=== PATIENT | female | born 1975 | race Native Hawaiian/Other Pacific Islander ===

== ENCOUNTER 2019-12-29 05:05 | Emergency (ER) | payer BC, SELFPAY ==
[2019-12-29 05:12] VITALS: BP 103/74; PULSE 111; RESP 20; TEMP 36.2; O2SAT 100
--- NOTE | 2019-12-29 05:58 | ED.ALLEREA ---
HPI - Allergic Reaction General Chief complaint: Allergic Reaction <Celeste Triplett MD - Last Filed: 12/29/19 06:49> Stated complaint: facial swelling <Celeste Triplett MD - Last Filed: 12/29/19 06:49> Time Seen by Provider: 12/29/19 05:54 <Celeste Triplett MD - Last Filed: 12/29/19 06:49> Source: patient <Celeste Triplett MD - Last Filed: 12/29/19 06:49> Mode of arrival: ambulatory <Celeste Triplett MD - Last Filed: 12/29/19 06:49> Limitations: no limitations <Celeste Triplett MD - Last Filed: 12/29/19 06:49> History of Present Illness HPI narrative: 44 yo female who presents for evaluation of lip swelling since yesterday. Patient states when she returned inside from raking leaves she noticed weird feeling to upper lip. She states she took benadryl last night, but she she woke up this morning with swelling to entire upper lip and face. She notes swelling then gradually moved to left lower lip. She denies pain with swallowing, sob and rash or itching. She denies previous history of similar occurrence. She denies family history of angioedema. She does take lisinopril 10 mg daily. <Celeste Triplett MD - Last Filed: 12/29/19 06:49> MD complaint: facial swelling <Celeste Triplett MD - Last Filed: 12/29/19 06:49> Related Data Home medications: Home Medications Medication Instructions Recorded Confirmed lisinopril 12/29/19 <Celeste Triplett MD - Last Filed: 12/29/19 06:49> Allergies/adverse reactions: Allergies Allergy/AdvReac Type Severity Reaction Status Date / Time No Known Allergies Allergy Verified 12/29/19 05:18 <Celeste Triplett MD - Last Filed: 12/29/19 06:49> Review of Systems Review of Systems: All systems reviewed & are unremarkable except as noted in HPI and below <Celeste Triplett MD - Last Filed: 12/29/19 06:49> Constitutional: Constitutional: Denies chills, Denies fever(s) and Denies weakness <Celeste Triplett MD - Last Filed: 12/29/19 06:49> ENT: Denies epistaxis, Denies nasal congestion and Denies sore throat <Celeste Triplett MD - Last Filed: 12/29/19 06:49> Cardiovascular: Cardiovascular: Denies chest pain <Celeste Triplett MD - Last Filed: 12/29/19 06:49> Respiratory: Respiratory: Denies cough and Denies dyspnea <Celeste Triplett MD - Last Filed: 12/29/19 06:49> Gastrointestinal: Gastrointestinal: Reports abdominal pain and Denies nausea <Celeste Triplett MD - Last Filed: 12/29/19 06:49> PMFSH Past Medical History Medical History: Medical History (Updated 12/29/19 @ 06:30 by Celeste Triplett MD) Hypertension Right ovarian cyst <Celeste Triplett MD - Last Filed: 12/29/19 06:49> Surgical History Surgical History: Surgical History (Updated 12/29/19 @ 06:27 by Celeste Triplett MD) H/O bilateral salpingectomy History of right oophorectomy <Celeste Triplett MD - Last Filed: 12/29/19 06:49> Social History Social History: Social History (Updated 12/29/19 @ 06:27 by Celeste Triplett MD) Smoking status: Never smoker <Celeste Triplett MD - Last Filed: 12/29/19 06:49> Exam Narrative: Exam Narrative: GENERAL: Well-appearing, well-nourished, and in no acute distress. HEAD: Normocephalic, atraumatic EYES: PERRLA and EOMI, conjunctiva clear without discharge EARS: TM's clear bilaterally without erythema or dullness NOSE: Nares clear, no rhinorrhea or epistaxis RESPIRATORY: No respiratory distress, Airway patent, Respirations non-labored, Clear to auscultation without rales, rhonchi or wheeze HEART: Regular rate and rhythm. No murmur heard. Normal peripheral pulses. ABDOMEN: Soft, nontender, nondistended, normal active bowel sounds. No masses. No rebound or guarding, No organomegaly. EXTREMITIES: No edema, normal strength with full range of motion. SKIN: Warm, dry, normal color without rash NEURO: Alert and oriented x3. CN 2-12 grossly intact. No focal deficits.
[2019-12-29 06:03] VITALS: BP 121/67; PULSE 64; RESP 16; O2SAT 98
[2019-12-29] MEDS: FAMOTIDINE 20 MG/2 ML VIAL IV PUSH (06:08)
[2019-12-29] MEDS: methylPREDNISolone SOD SUCC 125 MG VIAL IV PUSH (06:08)
[2019-12-29 06:59] VITALS: BP 121/63; PULSE 64; RESP 16; O2SAT 100
[2019-12-29 07:31] VITALS: BP 119/65; PULSE 65; RESP 16; O2SAT 99
[2019-12-29 08:45] VITALS: BP 121/62; PULSE 67; RESP 15; O2SAT 100
== END 2019-12-29 09:11 | disposition home or self-care (01) ==
PROVIDERS: Emergency Provider Emergency Medicine; PCP Internal Medicine
DX: T78.3XXA Angioneurotic edema, initial encounter (principal); I10 Essential (primary) hypertension
CPT/HCPCS: 96374; 96375; 99284; J1200; J2930

== ENCOUNTER → 2020-07-08 14:54 | Outpatient (CLI) | payer BC, SELFPAY ==
--- NOTE | ~2020-07-08 | MM_ITS ---
EXAMINATION: MM screening [facility] BI w [facility] HISTORY: Screening mammogram TECHNIQUE: Craniocaudal and mediolateral oblique 3-D tomosynthesis images were obtained and synthetic 2-D images were generated. CAD analysis was submitted and interpreted. COMPARISON: 03/23/2019, 02/17/2018, 02/04/2017 BREAST PARENCHYMAL COMPOSITION: The breasts are almost entirely fatty. FINDINGS: There is no evidence of suspicious mass, calcification, or architectural distortion to sugg est malignancy in either breast. There has been no suspicious interval change. IMPRESSION: 1. No mammographic evidence of malignancy. 2. Recommend routine screening mammography in one year. BI-RADS Category 1: Negative Reviewed, dictated and finalized at location A.
== END ==
PROVIDERS: Visit Provider Obstetrics & Gynecology
DX: Z12.31 Encounter for screening mammogram for malignant neoplasm of breast (principal)
CPT/HCPCS: 77063; 77067

== ENCOUNTER → 2021-08-05 12:03 | Outpatient (CLI) | payer BC, SELFPAY ==
--- NOTE | ~2021-08-05 | MM_ITS ---
EXAMINATION: MM screening [facility] w [facility] HISTORY: Screening mammogram TECHNIQUE: Craniocaudal and mediolateral oblique 3-D tomosynthesis images were obtained and synthetic 2-D images were generated. CAD analysis was submitted and interpreted. COMPARISON: 07/08/2020, 03/23/2019, 02/17/2018 bilateral digital screening mammogram examinations BREAST PARENCHYMAL COMPOSITION: The breasts are almost entirely fatty. FINDINGS: There is no evidence of suspicious mass, calcification, or architectural distortion to sugg est malignancy in either breast. There has been no suspicious interval change. IMPRESSION: 1. No mammographic evidence of malignancy. 2. Recommend routine screening mammography in one year. BI-RADS Category 1: Negative Reviewed, dictated and finalized at location A.
== END ==
PROVIDERS: PCP Internal Medicine; Visit Provider Obstetrics & Gynecology
DX: Z12.31 Encounter for screening mammogram for malignant neoplasm of breast (principal)
CPT/HCPCS: 77063; 77067

== ENCOUNTER 2021-09-15 00:41 | Day surgery (SDC) | payer BC, SELFPAY ==
[2021-08-30 13:53] VITALS: BMI 51.6
--- NOTE | 2021-09-14 10:45 | PM.HPGS ---
History of Present Illness History of Present Illness Consent: Risks, benefits, and alternatives have been discussed and questions answered. Patient agrees to proceed with procedure. Chief complaint: neoplasm screening Narrative: Erin Vu is a 46 year old female who was referred for colon cancer screening Review of Systems Review of Systems: All systems reviewed & are unremarkable except as noted in HPI and below PMFSH Past Medical History Medical History Degenerative arthritis of knee, bilateral Hypertension Right ovarian cyst Surgical History Surgical History H/O bilateral salpingectomy History of right oophorectomy Social History Social History Smoking status: Never smoker Alcohol intake: never Substance use: never Substance use type: does not use Living arrangements: alone Spiritual care concerns: No Meds Home Medications and Allergies Home Medications Medication Instructions Recorded Confirmed Type atorvastatin 10 mg PO DAILY 08/30/21 09/15/21 History Allergies Allergy/AdvReac Type Severity Reaction Status Date / Time lisinopril Allergy Severe Swelling Verified 09/15/21 06:58 Exam Resp: Auscultation: clear to auscultation bilaterally Cardio: Rate: regular rate Rhythm: regular rhythm GI: GI Palp: Yes Soft to palpation and No Tenderness to palpation present (GI) Assessment and Plan Assessment and plan (1) Colon cancer screening: Code(s): Z12.11 - Encounter for screening for malignant neoplasm of colon Status: Acute Assessment and Plan: Colonoscopy with possible biopsy or polypectomy or cautery or injection of substances.
[2021-09-15 06:48] VITALS: BP 177/86; PULSE 81; RESP 18; TEMP 36; O2SAT 100; BMI 50.2
[2021-09-15] MEDS: LACTATED RINGERS 1,000 ML 150 ML IV CONT (07:09)
--- NOTE | 2021-09-15 07:47 | WPDANESEPPF ---
Anes - Initial Pre Proc Eval Procedure: Operation Date: 09/15/21 08:00 Proposed Procedures p Screening Colonoscopy - Brennen Cohn MD Date/Time: 09/15/21 07:47 Surgeon: Brennen Cohn MD Pre Op Diagnosis: neoplasm screening Patient Data Age: 46 Gender: F Height: 1.63 m Weight: 132.8 kg Last Vital Signs Temp 96.8 F L 09/15/21 06:48 Pulse 81 09/15/21 06:48 Resp 18 09/15/21 06:48 BP 177/86 H 09/15/21 06:48 Pulse Ox 100 09/15/21 06:48 Allergies Allergy/AdvReac Type Severity Reaction Status Date / Time lisinopril Allergy Severe Swelling Verified 09/15/21 06:58 Home Medications Medication Instructions Recorded Confirmed Type atorvastatin 10 mg PO DAILY 08/30/21 09/15/21 History Patient hx anesthesia problems: none Family hx anesthesia problems: none Results Review: All pre-operative results and documents have been reviewed as part of the pre-operative evaluation. [facility] Past Medical History Medical History Degenerative arthritis of knee, bilateral Hypertension Right ovarian cyst Surgical History Surgical History H/O bilateral salpingectomy History of right oophorectomy Social History Social History Smoking status: Never smoker Alcohol intake: never Substance use: never Substance use type: does not use Living arrangements: alone Spiritual care concerns: No Anes - Eval Final PreProcedure Day of Procedure 09/15/21 07:47 Patient weight: super morbidly obese Heart: regular rate and rhythm Lungs: clear to auscultation Airway: Mallampati scale class II Neurological: alert and oriented Last oral intake: >/= 8 hours ASA classification: III Emergent: no Anesthetic plan: proceed Anesthesia type and monitoring: general GIVS and standard monitoring Results Review: All pre-operative results and documents have been reviewed as part of the pre-operative evaluation. Informed Consent: The patient's anesthetic plan and its attendant risks and benefits were discussed with the patient/family/POA. Questions were solicited and answers provided to the satisfaction of the patient/family/POA.
[2021-09-15 08:13] VITALS: BP 122/75; PULSE 81; RESP 20; O2SAT 99
[2021-09-15 08:23] VITALS: BP 132/82; PULSE 69; RESP 17; O2SAT 100
[2021-09-15 08:33] VITALS: BP 142/79; PULSE 65; RESP 19; O2SAT 100
== END 2021-09-15 08:35 | disposition home or self-care (01) ==
PROVIDERS: PCP Internal Medicine; Visit Provider Internal Medicine Gastroenterology
PROC: 0DJD8ZZ Inspection of Lower Intestinal Tract, Via Natural or Artificial Opening Endoscopic (ICD-10-PCS; CPT 45378; principal; 2021-09-15 08:00)
DX: Z12.11 Encounter for screening for malignant neoplasm of colon (principal); I10 Essential (primary) hypertension; E66.01 Morbid (severe) obesity due to excess calories; Z68.43 Body mass index [BMI] 50.0-59.9, adult
CPT/HCPCS: 45378; J2704; J7120

== ENCOUNTER → 2022-09-12 12:13 | Outpatient (CLI) | payer BC, SELFPAY ==
--- NOTE | ~2022-09-12 | MM_ITS ---
EXAMINATION: MM screening [facility] BI w [facility] HISTORY: Screening mammogram TECHNIQUE: Craniocaudal and mediolateral oblique 3-D tomosynthesis images were obtained and synthetic 2-D images were generated. CAD analysis was submitted and interpreted. COMPARISON: 08/05/2021, 07/08/2020, 03/23/2019 BREAST PARENCHYMAL COMPOSITION: The breasts are almost entirely fatty. FINDINGS: No suspicious mass, calcification, or architectural distortion are identified in either ye ast to suggest malignancy. There has been no suspicious interval change. IMPRESSION: 1. No mammographic evidence of malignancy. 2. Recommend routine screening mammography in one year. BI-RADS Category 1: Negative Reviewed, dictated and finalized at location A. 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
== END ==
PROVIDERS: PCP Internal Medicine; Visit Provider Obstetrics & Gynecology
DX: Z12.31 Encounter for screening mammogram for malignant neoplasm of breast (principal)
CPT/HCPCS: 77063; 77067

== ENCOUNTER 2023-10-03 13:59 | Outpatient (CLI) | payer BC, SELFPAY ==
--- NOTE | ~2023-10-03 | MM_ITS ---
EXAMINATION: MM screening [facility] HISTORY: Screening mammogram TECHNIQUE: Craniocaudal and mediolateral oblique 3-D tomosynthesis images were obtained and synthetic 2-D images were generated. CAD analysis was submitted and interpreted. COMPARISON: 09/12/2022, 07/28/2021, 07/08/2020 bilateral screening mammogram examinations BREAST PARENCHYMAL COMPOSITION: The breasts are almost entirely fatty. FINDINGS: There is no evidence of suspicious mass, calcification, or architectural distortion to sugg est malignancy in either breast. There has been no suspicious interval change. IMPRESSION: 1. No mammographic evidence of malignancy. 2. Recommend routine screening mammography in one year. BI-RADS Category 1: Negative Reviewed, dictated and finalized at location A. 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
== END 2023-10-03 14:00 ==
LOC: MICIMG 14:01
PROVIDERS: PCP Obstetrics & Gynecology; Visit Provider Obstetrics & Gynecology
DX: Z12.31 Encounter for screening mammogram for malignant neoplasm of breast (principal)
CPT/HCPCS: 77063; 77067

== ENCOUNTER 2024-10-04 10:15 | Outpatient (CLI) | payer OTHER, SELFPAY ==
--- NOTE | ~2024-10-04 | MM_ITS ---
EXAMINATION: MM screening [facility] BI w [facility] HISTORY: Screening TECHNIQUE: Craniocaudal and mediolateral oblique 3-D tomosynthesis images were obtained and synthetic 2-D images were generated. CAD analysis was submitted and interpreted. COMPARISON: 10/03/2023 and dating back to 07/08/2020 BREAST PARENCHYMAL COMPOSITION: There are scattered areas of fibroglandular density. FINDINGS: Punctate calcifications detected bilaterally, stable and benign in appearance, dermal in or igin. Stable parenchymal pattern without suspicious microcalcifications, architectural distortion, discrete masses or significant asymmetry. IMPRESSION: 1. No mammographic evidence of malignancy. 2. Recommend routine screening mammography in one year. BI-RADS Category 2: Benign finding(s). Reviewed, dictated and finalized at location A. 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
== END 2024-10-04 10:16 | disposition home or self-care (01) ==
LOC: MICIMG 10:17
PROVIDERS: PCP Obstetrics & Gynecology; Visit Provider Obstetrics & Gynecology
DX: Z12.31 Encounter for screening mammogram for malignant neoplasm of breast (principal)
CPT/HCPCS: 77063; 77067

== ENCOUNTER 2025-10-07 10:29 | Outpatient (CLI) | payer OTHER, SELFPAY ==
--- NOTE | ~2025-10-07 | MM_ITS ---
EXAMINATION: MM screening [facility] HISTORY: Screening TECHNIQUE: Craniocaudal and mediolateral oblique 3-D tomosynthesis images were obtained and synthetic 2-D images were generated. CAD analysis was submitted and interpreted. COMPARISON: 2023, 2022, and 2021 BREAST PARENCHYMAL COMPOSITION: The breast tissue is almost entirely composed of fat. FINDINGS: No suspicious masses are seen. There are no suspicious calcifications. No unexplained architectural distortion is seen. There are no skin or nipple abnormalities identified. There is no adenopathy seen on the images submitted. IMPRESSION: No mammographic evidence to suggest malignancy is seen. The patient may return to screening mammography as per ACR guidelines. BI-RADS 1 - Negative. Reviewed, dictated and finalized at location C. 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
== END 2025-10-07 10:30 | disposition home or self-care (01) ==
LOC: MICIMG 10:30
PROVIDERS: PCP Obstetrics & Gynecology; Visit Provider Obstetrics & Gynecology
DX: Z12.31 Encounter for screening mammogram for malignant neoplasm of breast (principal)
CPT/HCPCS: 77063; 77067